=== PATIENT | male | born 1945 | race Caucasian/White ===

== ENCOUNTER 2016-11-21 07:05 | Emergency (ER) | payer MEDICARE ==
[~2016-11-21] VITALS: Ht 177.8 cm; Wt 104.2 kg
[2016-11-21] MEDS ORDERED: OLME1TAB5 PO (07:53)
[2016-11-21] MEDS ORDERED: ASPI-650 PO (07:53)
[2016-11-21 08:11] LABS: HEMOGLOBIN 14.4 g/dL (13.7-18.0)
[2016-11-21 08:25] LABS: BLOOD UREA NITROGEN 20 mg/dL (7-18)
[2016-11-21 08:32] LABS: IS PT STATUS REG ER OR PRE ER? YES
[2016-11-21 09:28] VITALS: BP 129/96
== END 2016-11-21 09:31 | disposition home or self-care (01) ==
LOC: ED 07:34
DX: R00.2 Palpitations (principal); I12.9 Hypertensive chronic kidney disease with stage 1 through stage 4 chronic kidney disease, or unspecified chronic kidney disease; N18.9 Chronic kidney disease, unspecified; E78.00 Pure hypercholesterolemia, unspecified; I25.10 Atherosclerotic heart disease of native coronary artery without angina pectoris; Z87.891 Personal history of nicotine dependence
CPT/HCPCS: 36415; 80048; 82040; 83735; 84484; 85025; 85610; 93005; 99285

== ENCOUNTER → 2016-12-27 | Outpatient (CLI) | payer MEDICARE ==
[~2016-12-27] MED LIST: ASPI-650 PO; OLME1TAB5 PO
== END | disposition home or self-care (01) ==
LOC: CFH 09:26
PROVIDERS: ATTEND Internal Medicine Cardiovascular Disease
DX: I08.1 Rheumatic disorders of both mitral and tricuspid valves (principal)
CPT/HCPCS: 93306